=== PATIENT | male | born 1970 | race Caucasian/White ===

== ENCOUNTER 2016-12-26 01:47 | Emergency (ER) | payer OTHER ==
[~2016-12-26] VITALS: Ht 172.7 cm; Wt 80.0 kg
[2016-12-26] MEDS ORDERED: FLEXERIL10 MG PO (03:21)
[2016-12-26] MEDS ORDERED: NORCO 5/3251 TABLET PO (03:21)
[2016-12-26 03:38] VITALS: BP 148/107
== END 2016-12-26 03:38 | disposition home or self-care (01) ==
LOC: EME 01:47
DX: S16.1XXA Strain of muscle, fascia and tendon at neck level, initial encounter (principal); V89.2XXA Person injured in unspecified motor-vehicle accident, traffic, initial encounter; Y92.411 Interstate highway as the place of occurrence of the external cause; Q05.9 Spina bifida, unspecified; Z87.891 Personal history of nicotine dependence
CPT/HCPCS: 99281; 99284